=== PATIENT | female | born 1965 | race Caucasian/White ===

== ENCOUNTER 2017-10-01 17:20 | Emergency (ER) | payer SELFPAY ==
[~2017-10-01] VITALS: Ht 160 cm; Wt 54.1 kg
[~2017-10-01 17:20] MED LIST: BACTRIM DS 8001 TAB PO; CEPHALEXIN500 M1 PO; NO HOME MEDICATIONS; PRIL40 PO; ULTRAM 50MG TAB50 MG PO; ZOFRAN8 MG PO
[2017-10-01 17:23] VITALS: TEMP 97.9
[2017-10-01] MEDS ORDERED: PROVENTIL0.09 MG/A1 IH (18:01)
[2017-10-01] MEDS ORDERED: INHALER INH (18:01)
[2017-10-01 18:28] LABS: BASO # 0.1 (0.0-0.2); BASO % 0.7 % (0.0-2.0); EOS # 0.1 (0.0-0.7); EOS % 0.5 % (0-4.0); GRAN # 7.7 (1.4-6.5); GRAN % 74.9 % (42.2-75.2); HEMATOCRIT 40.5 % (37.0-47.0); HEMOGLOBIN 14.5 g/dl (12.5-16.0); LYMPH # 1.4 (1.2-3.4); LYMPH % 13.7 % (20.0-51.0); MEAN CELL VOLUME 95 fl (80.0-100.0); MEAN CORPUSCULAR HEMOGLOBIN 34 pg (27.0-31.0); MEAN CORPUSCULAR HGB CONC 36 g/dl (33.0-37.0); MONO % 9.7 % (1.7-9.3); PLATELET COUNT 151 K/mm3 (130-400); RED BLOOD COUNT 4.26 M/mm3 (4.10-5.30); REDCELL DISTRIBUTION WIDTH-CV 13.6 % (11.5-14.5)
[2017-10-01 18:42] LABS: ALBUMIN 3.6 gm/dL (3.5-5.0); BILIRUBIN,TOTAL 0.6 mg/dL (0.0-1.0); CALCIUM 8.6 mg/dL (8.4-10.2); CREATININE, serum 0.48 mg/dL (0.52-1.25); POTASSIUM 3.7 mmol/L (3.4-5.0); TOTAL PROTEIN 7.5 gm/dL (6.4-8.2)
[2017-10-01 19:12] LABS: TSH w REFLEX 1.25 uIU/mL (0.465-4.680)
[2017-10-01] MEDS ORDERED: NORCO 325 MG-51 TAB PO (20:32)
[2017-10-01 21:03] VITALS: BP 103/70; PULSE 97
[2017-10-01] MEDS ORDERED: ZITHROMAX Z PA250 MG PO (22:16)
== END 2017-10-01 21:05 | disposition home or self-care (01) ==
LOC: COL.ER 17:20
PROVIDERS: Emergency Medicine
DX: S82.831A Other fracture of upper and lower end of right fibula, initial encounter for closed fracture (principal); S93.401A Sprain of unspecified ligament of right ankle, initial encounter; W18.39XA Other fall on same level, initial encounter
CPT/HCPCS: J1885; J2270; L1846

== ENCOUNTER 2017-12-01 13:45 | Outpatient (RCR) | payer SELFPAY ==
[~2017-12-01 13:45] MED LIST changes: +INHALER INH; +NORCO 325 MG-51 TAB PO; +PROVENTIL0.09 MG/A1 IH; +ZITHROMAX Z PA250 MG PO
== END 2018-02-01 10:58 | disposition home or self-care (01) ==
LOC: MKS.ESL.PT 13:45
DX: S82.401D Unspecified fracture of shaft of right fibula, subsequent encounter for closed fracture with routine healing (principal); W08.XXXD Fall from other furniture, subsequent encounter

== ENCOUNTER → 2018-06-04 | Outpatient (CLI) | payer OTHER | LOC: COL.RAD 09:59 | DX: Z02.71 Encounter for disability determination (principal); M25.551 Pain in right hip; Z87.81 Personal history of (healed) traumatic fracture; Z98.890 Other specified postprocedural states ==

== ENCOUNTER → 2019-01-20 | Outpatient (CLI) | payer MEDICAID ==
[2019-01-20 13:25] LABS: ARTERIAL BLD GAS O2 SATURATION 96.9 % (92-100); ARTERIAL BLD GAS TCO2 CT 19.9; ARTERIAL BLOOD GAS BASE EXCESS -2.3 (-2-2); ARTERIAL BLOOD GAS HCO3 19.2 meq/L (22-26); ARTERIAL BLOOD GAS PCO2 25.6 mmHg (35-45); ARTERIAL BLOOD GAS PO2 89.5 mmHg (80-100); ARTERIAL BLOOD GAS pH 7.49 (7.35-7.45)
== END ==
LOC: COL.PUL 01-10 11:20
PROVIDERS: Internal Medicine Pulmonary Disease
DX: R06.02 Shortness of breath (principal)

== ENCOUNTER 2019-02-11 14:17 | Outpatient (RCR) | payer MEDICAID | END 2019-05-12 | disposition home or self-care (01) | LOC: MKS.ESL.PT | DX: R29.6 Repeated falls (principal) ==

== ENCOUNTER → 2021-09-02 | Outpatient (CLI) | payer MEDICARE, MEDICAID | LOC: COL.RAD 13:30 | DX: Z12.2 Encounter for screening for malignant neoplasm of respiratory organs (principal); R91.8 Other nonspecific abnormal finding of lung field; F17.200 Nicotine dependence, unspecified, uncomplicated ==

== ENCOUNTER 2022-03-06 15:02 | Emergency (ER) | payer MEDICARE, MEDICAID ==
[~2022-03-06] VITALS: Ht 157.5 cm; Wt 64.1 kg
[2022-03-06 15:31] VITALS: TEMP 98.1
[2022-03-06] MEDS ORDERED: ZOFRAN ODT4 MG PO (16:38)
[2022-03-06] MEDS ORDERED: NORCO 325 MG-51 TAB PO (16:38)
[2022-03-06 16:56] VITALS: BP 168/98; PULSE 114
== END 2022-03-06 17:10 | disposition home or self-care (01) ==
LOC: COL.ER 15:02
DX: S06.0X0A Concussion without loss of consciousness, initial encounter (principal); F17.200 Nicotine dependence, unspecified, uncomplicated; Z28.310 Unvaccinated for COVID-19; W01.198A Fall on same level from slipping, tripping and stumbling with subsequent striking against other object, initial encounter
CPT/HCPCS: J2060; J2405; J7120